=== PATIENT | female | born 1985 | race Caucasian/White ===

== ENCOUNTER 2018-08-10 22:54 | Emergency (ER) | payer MEDICAID, OTHER ==
--- NOTE | 2018-08-10 23:23 | EDPHY ---
General Time Seen by Provider: 08/10/18 23:23 Narrative: CLINICAL IMPRESSION: Lip laceration ASSESSMENT/PLAN: Patient is a 33-year-old female with no significant medical history who presents to the emergency department with complaints of a lip laceration after sustaining a mechanical fall just prior to arrival. Physical examination reveals a 1.5 cm laceration to the mid lower lip extending from the dry mucosa to the inner wet mucosa. There is no vermilion border involvement. Patient did have some dirt debris imbedded in the lip mucosa, the wound was copiously irrigated and I surgically debrided with no evidence of retained foreign body. The lip was then repaired as discussed in the procedure note. Her tetanus status was up-to-date, patient was given prophylactic antibiotic and will continue for the next 3 days. There was no evidence of traumatic head injury, skull fracture, dental trauma, mandibular fracture and I do not suspect intracranial hemorrhage. She will return to the emergency department in 5 days for suture removal, return precautions discussed. ED PROCEDURES: Laceration Repair Verbal consent obtained by patient. Risks discussed, including but not limited to infection, pain, retained foreign body, need for additional repair, poor cosmetic result, tendon damage, nerve damage, poor wound healing, vascular damage. Alternatives to repair discussed. Sharon protocol used to establish correct patient, procedure, equipment and site. Anesthesia obtained by local infiltration. Anesthetized with 1% lidocaine. Laceration location mid lower lip, length 1.5 cm, depth 8 mm, Repair type intermediate. Patient was prepped and draped in usual sterile fashion. Hemostasis achieved with direct pressure. Wound explored and entire depth of wound probed and visualized with gloved finger. The wound was copiously irrigated however there was some debris imbedded in the lip mucosa. This was surgically debrided by myself. No suspicion for vascular damage, retained foreign body, or contamination. Repair method- 2 deep 5.0 PDS sutures placed. The superficial dry portion of the lip was closed with 6.0 Prolene, total of 6 sutures. The wet border and mucosa was closed with 6.0 fast-absorbing. Well aligned, closely approximated. Wound was dressed with antibiotic ointment. Patient tolerated well with no immediate complications. Wound care: Clean and dry x 24 hours, gently clean with soap and water, cover with topical antibiotic ointment. Suture removal: 5 Days CHIEF COMPLAINT: Lip Laceration HPI: Patient is a 33-year-old female with no significant medical history, up-to-date on her tetanus status presents to the emergency department after mechanical trip and fall complaining of a lip laceration. Patient reports just prior to arrival she was walking a couple of dogs, she accidentally tripped causing her to fall forward landing with her lip on the ground. She complains of lip laceration, denies any dental pain or dental trauma. She did not hit any other part of her head, there was no loss of consciousness. Patient endorses several cocktails earlier this evening, she is not on any blood thinners, anticoagulation or other anti-platelet therapy. She has no history of bleeding disorder. There has been no vomiting, altered mentation, retrograde amnesia or posttraumatic seizure. REVIEW OF SYSTEMS: All other systems negative, please see HPI. PHYSICAL EXAM: General Appearance: Alert, oriented, no acute distress. HEENT: Normocephalic. Bilateral external ears are normal, TMs clear without evidence of hemotympanum. There is no evidence of Gant sign or raccoon eyes. Nares are clear, there is no nasal bridge tenderness. Mucosa is pink. Mid lower lip with a 1.5 cm laceration extending to the wet inner mucosa. There is no vermilion border involvement. Oropharynx is otherwise clear. There is no malocclusion. She has no dental pain or evidence of dental trauma. There is no mandibular tenderness to palpation. Neck: She has no midline cervical spinal tenderness to palpation, no paraspinal muscle tenderness to palpation. There is no step-off or deformity, full range of motion. Skin: Warm, dry. Upper Extremities: Intact distal pulses, Full range of motion intact, no tenderness, no ecchymosis or edema. Bilateral palms with faint abrasions. Lower Extremities: Intact distal pulses, No edema, No tenderness, No cyanosis, full range of motion intact, No calf tenderness bilaterally. Neuro: MENTAL STATUS: Patient is alert and oriented to person, place, time, and situation. Recent and remote memory are intact. Attention and concentration are normal. Found knowledge is appropriate to level of education. Mood and affect normal. SPEECH: Language including naming, repetition, comprehension, and spontaneous speech are normal. No dysarthria or dysphagia. CRANIAL NERVES: II: Visual lamar are full to confrontation. Vision is grossly intact. III, IV, : Pupils are equal, round, reactive to light. Extraocular eye movements are full and without nystagmus. V: Facial sensation is intact to touch symmetrically in all 3 divisions. VII: Face is symmetric at rest with no asymmetry of grimace or evidence of facial weakness. VIII: Hearing is intact bilaterally to finger rub. IX, X: Palate is midline and elevates symmetrically with intact cough/gag. XI: Sternocleidomastoid and trapezius strength is normal. XII: Tongue protrudes midline without atrophy or fasciculations. MOTOR: Normal bulk and tone symmetrically in the upper and lower extremities. Upper extremities: shoulder abduction, elbow flexion, elbow extension, flexion of fingers and finger abduction strength 5/5 bilaterally. Lower extremities: hip flexion, knee flexion and extension, plantar and dorsiflexion of foot, and great toe extension strength 5/5 bilaterally. No pronator drift. SENSORY: Sensation is intact to light touch and symmetric in the UE's in LE's bilaterally. Romberg is negative. COORDINATION: Fine motor and rapid alternating movements are normal. Finger to nose is normal bilaterally. [id number] is normal bilaterally. No abnormal movements noted. There is no tremor at rest or with posture or action. GAIT/STATION: Casual, straightforward gait is normal. Patient can walk on toes and on heels. No gait instability. MEDICAL DECISION MAKING: Patient was seen independently. Secondary supervising physician at time of evaluation was Dr. Soto. Diagnosis: Lip laceration. Summary: See assessment and plan for summary of ED visit Decision to obtain medical records or history from someone other than the patient: No Review / Summarize previous medical records: Yes Disposition: Stable, discharge - History Smoking Status: Never smoked - Objective Vital Signs: Initial Vital Signs Temperature (C) 36.8 C 08/10/18 22:57 Heart Rate 102 H 08/10/18 22:57 Respiratory Rate 18 08/10/18 22:57 Blood Pressure 129/93 H 08/10/18 22:57 O2 Sat (%) 94 08/10/18 22:57 O2 Delivery Mode Room Air Allergies/Adverse Reactions: No Known Allergies Allergy (Unverified 08/10/18 22:56) Home Medications: Medication Instructions Recorded Cephalexin [Keflex (*)] 500 mg PO Q6H 3 Days cap 08/11/18 Medications Given: Discontinued Medications Cephalexin HCl (Keflex) 500 mg PO EDNOW ONE PRN Reason: Protocol Stop: 08/11/18 00:33 Last Admin: 08/11/18 00:37 Dose: 500 mg Ibuprofen (Motrin) 400 mg PO EDNOW ONE Stop: 08/11/18 00:35 Last Admin: 08/11/18 00:39 Dose: 400 mg Departure - Departure Disposition: Home, Routine, Self-Care Clinical Impression: Lip laceration Qualifiers: Encounter type: initial encounter Qualified Code(s): S01.511A - Laceration without foreign body of lip, initial encounter Condition: Good Instructions: Laceration (ED) Additional Instructions: DISCHARGE INSTRUCTIONS FROM YOUR PROVIDER Thank you for visiting our emergency department today. Please keep in mind that discharge from the emergency department does not mean that there is nothing wrong - it simply means that we have not identified an emergency condition that requires further evaluation or treatment in the hospital. You should always plan to follow up with primary care for re-evaluation of your condition in the next 2-3 days. Keep wound clean and dry for 24 hours. Then clean at least twice daily or when soiled with soap and water, apply antibiotic ointment or Aquaphor. Do not soak the wound while the stitches are in place. Continue Keflex for the next 3 days. This is an antibiotic. You have a combination of dissolvable and sutures that need to be removed. Anticipate suture removal in 5 days, you may return to the emergency department for suture removal. For pain control: You may take Tylenol, I recommend 500-1000 mg every 6-8 hours as needed. Take with food and a full glass of water. Stop taking if this is upsetting you stomach. Do not exceed 4000 mg in a 24 hr period. You may also take ibuprofen, recommend 400 mg every 6 hr. Take with food and a full glass of water. Stop taking if this upsets your stomach. Do not exceed 2400 mg in a 24 hr period. Continue your regular medications as prescribed. Return for signs of wound infection ie: redness, swelling, drainage, foul odor, red streaks, fever, chills, pain, bleeding, if the stitches pop, if the wound opens or for any other new, worsening or worrisome symptoms. People present with illnesses and injuries in different ways, and it is always possible that we have missed something. Again, thank you for choosing our emergency department. We hope that you feel better. Referrals: Ralf Bravo MD [[facility] [place]] - As per Instructions (Please establish care with a PCP if you do not have one) ED,PHYSICIAN ONDUTY [Medical Doctor] - As per Instructions (5 days suture removal) Prescriptions: Cephalexin [Keflex (*)] 500 mg PO Q6H 3 Days cap
[2018-08-11] MEDS ORDERED: CEPHALEXIN 500 MG CAP PO ONE (00:32)
[2018-08-11] MEDS ORDERED: IBUPROFEN 200 MG TAB PO ONE (00:34)
[2018-08-11 00:42] VITALS: BP 122/89
== END 2018-08-11 01:05 | disposition home or self-care (01) ==
PROC: 0CQ1XZZ Repair Lower Lip, External Approach (ICD-10-PCS; principal; 2018-08-10)
DX: S01.511A Laceration without foreign body of lip, initial encounter (principal); W01.198A Fall on same level from slipping, tripping and stumbling with subsequent striking against other object, initial encounter; Y93.K1 Activity, walking an animal; Y92.480 Sidewalk as the place of occurrence of the external cause

== ENCOUNTER 2018-08-11 12:18 | Emergency (ER) | payer MEDICAID ==
[2018-08-11 12:23] VITALS: BP 115/73
--- NOTE | 2018-08-11 12:34 | EDPHY ---
H & P Time Seen by Provider: 08/11/18 12:26 HPI/ROS: CHIEF COMPLAINT: Wound recheck, sutures fell out HISTORY OF PRESENT ILLNESS: 33-year-old female seen the ER last evening status post mechanical fall sustaining lip laceration. She had wound repair including Prolene sutures and PDS absorbable sutures. Returns to the ER concerned that the 2 PDS sutures have fallen out. No dehiscence of wound. PHYSICAL EXAM (Prior to examination, patient consented to physical exam, hands were washed and my usual and customary physical exam procedures followed) 1) GENERAL: Well-developed, well-nourished, alert and oriented. Appears to be in no acute distress. 2) HEAD: Normocephalic 3) HEENT: sclera anicteric 4) LUNGS: Breathing comfortably. 5) SKIN: Lower lip laceration evaluated by myself. Prolene sutures in place with no dehiscence. I do not identify any absorbable sutures. There is no dehiscence to the buccal mucosa or other part of laceration.. There is no sign of infection. Smoking Status: Never smoked Constitutional: Initial Vital Signs Temperature (C) 36.6 C 08/11/18 12:20 Heart Rate 93 08/11/18 12:20 Respiratory Rate 16 08/11/18 12:20 Blood Pressure 115/73 08/11/18 12:20 O2 Sat (%) 94 08/11/18 12:20 O2 Delivery Mode Room Air Allergies/Adverse Reactions: No Known Allergies Allergy (Unverified 08/10/18 22:56) Home Medications: Medication Instructions Recorded Cephalexin [Keflex (*)] 500 mg PO Q6H 3 Days cap 08/11/18 MDM/Departure - [facility] ED Course/Re-evaluation: The patient's 2 absorbable sutures are no longer present however there is no dehiscence of the wound. The remaining Prolene sutures are in place. Patient I discussed options. I offered to place as orbital sutures however as the wound is already granulating appropriately there is no dehiscence, I do not think that this is definitively indicated. She is in agreement. I recommended gentle mastication and minimizing trauma to the area. She feels comfortable being discharged. Patient feels comfortable being discharged. All questions and concerns addressed by myself. Patient given my usual and customary discharge precautions and instructions regarding their clinical impression. Care of patient under supervision of primary supervising physician Dr Ya . - Depart Disposition: Home, Routine, Self-Care Clinical Impression: Lip laceration Qualifiers: Encounter type: subsequent encounter Qualified Code(s): S01.511D - Laceration without foreign body of lip, subsequent encounter Condition: Good Instructions: Laceration (ED), Care For Your Stitches (ED) Additional Instructions: Avoid eating crunchy foods or foods where you have to open your mouth wide. Referrals: Return, to the ER in 5 days for suture removal [Other] - As per Instructions
== END 2018-08-11 12:41 | disposition home or self-care (01) ==
DX: S01.511D Laceration without foreign body of lip, subsequent encounter (principal)